=== PATIENT | female | born 1995 | race Caucasian/White ===

== ENCOUNTER 2022-01-16 22:33 | Emergency (ER) | payer BC ==
[~2022-01-16] VITALS: Ht 175.3 cm; Wt 86.2 kg
[2022-01-16 22:49] VITALS: BP 109/61
--- NOTE | 2022-01-16 22:49 | NUR ---
TO BED AMBULATORY
[2022-01-16] MEDS ORDERED: diphenhydrAMINE 50 MG/ML VIAL IVP ONE (23:25)
[2022-01-16] MEDS ORDERED: NACL 0.9% 1,000 ML IV ONE (23:25)
[2022-01-16] MEDS ORDERED: KETOROLAC 30 MG/ML VIAL IVP ONE (23:25)
[2022-01-16] MEDS ORDERED: PROCHLORPERAZINE 10 MG/2 ML VIAL IVP ONE (23:25)
--- NOTE | 2022-01-16 23:28 | NUR ---
ER EXAMINING PT
--- NOTE | 2022-01-16 23:34 | NUR ---
pt taken to ct
--- NOTE | 2022-01-16 23:37 | NUR ---
26 Y/O FEMALE BIB SELF, C/O PRESSURE HEADACHES X2 WEEKS. PATIENT PRESENTS TO ED WITH PRESSURE TO THE TOP, FRONT, AND BACK OF HER HEAD SIMILAR TO MIGRAINES, BUT WORSE. PT STATES SHE HAS DIZZINESS, NAUSEA, FATIGUE, AND FEELING FAINT. DENIES V/D; SKIN IS PINK/WARM/DRY; AAOX4 WITH EVEN AND STEADY GAIT; LUNGS CLEAR BL; HR EVEN AND REGULAR; PT DENIES ANY FEVER, CP, SOB, OR COUGH AT THIS TIME; PATIENT STATES PAIN OF 10/10 AT THIS TIME; VSS; PATIENT POSITIONED FOR COMFORT; HOB ELEVATED; BEDRAILS UP X1; BED DOWN. ER MD MADE AWARE OF PT STATUS. NO RECENT HISTORY OF ILLNESS, MEDICATION CHANGE, OR INJURY. HX: MIGRAINES AND HYPOTHYROID NKDA DENIES MEDICATION
--- NOTE | 2022-01-16 23:43 | NUR ---
PT RETURN FROM CT
[2022-01-17] MEDS ORDERED: ONDA-188 SL (01:11)
[2022-01-17 01:46] VITALS: BP 109/61
--- NOTE | 2022-01-17 01:46 | NUR ---
Patient discharged with v/s stable. Written and verbal after care instructions given and explained. Patient alert, oriented and verbalized understanding of instructions. Ambulatory with steady gait. All questions addressed prior to discharge. ID band removed. Patient advised to follow up with PMD. Rx of Ondansetron given. Patient educated on indication of medication including possible reaction and side effects. Opportunity to ask questions provided and answered. VSS, A/OX4, AMBULATORY, UNLABORED BREATHING, AND CALM DEMEANOR. Pt's ride is waiting for pt in [facility].
== END 2022-01-17 01:46 | disposition home or self-care (01) ==
LOC: MED 22:33
DX: G43.109 Migraine with aura, not intractable, without status migrainosus (principal); Z79.899 Other long term (current) drug therapy
CPT/HCPCS: 70450; 81025; 96361; 96374; 96375; 99284; J0780; J1200; J1885; J7030